=== PATIENT | male | born 1970 | race Caucasian/White ===

== ENCOUNTER 2021-03-06 07:52 | Emergency (ER) | payer OTHER ==
[~2021-03-06] VITALS: Ht 188 cm; Wt 80.7 kg
--- OUTSIDE RECORDS SUMMARY | 2021-03-06 07:56 | XMS ---
PreManage Notification: SANAM MEJIA Security Quality Specialist Events No recent Security Events currently on file CRITERIA MET - [facility] - 2 Visits in 30 Days CARE PROVIDERS KEYANNA SIDDIQUI [facility] Current PHONE: Unknown STEFFI Cote Nurse Practitioner Jose ZULETAFER PHONE: Unknown Michel has no Care Guidelines for this patient. Meli VISIT COUNT (12 MO.) [address] [place] [address] TOTAL 5 NOTE: Visits indicate total known visits. ED/UCC VISIT TRACKING (12 MO.) 03/06/2021 07:54 [facility] [place] TYPE: Emergency COMPLAINT: - POSS CONSTIPATION [facility]2021 08:[email or web address] DIAGNOSES: - Disorder of kidney and ureter, unspecified - CONSTIPATION - Constipation, unspecified 02/14/2021 14:09 [facility] [place] TYPE: Emergency DIAGNOSES: - Constipation, unspecified - CONSTIPATION 01/02/2021 09:54 [facility] [place] TYPE: Emergency DIAGNOSES: - DAILYSIS PATIENT KIDNEY PAIN - Unspecified abdominal pain - DIALYSIS PATIENT KIDNEY PAIN 03/19/2020 21:27 [facility] [place] TYPE: Emergency DIAGNOSES: - MIGRAINE - Migraine, unspecified, not intractable, without status migrainosus INPATIENT VISIT TRACKING (12 MO.) No inpatient visits to display in this time frame [email or web address]
[2021-03-06] MEDS ORDERED: NIFEDIPINE ER90 MG PO (08:26)
[2021-03-06] MEDS ORDERED: LISINOPRIL20 MG PO (08:26)
[2021-03-06] MEDS ORDERED: CONSTULOSE10 GM/15 M PO (08:26)
[2021-03-06] MEDS ORDERED: CARVEDILOL12.5 MG PO (08:26)
[2021-03-06] MEDS ORDERED: ALLOPURINOL300 MG PO (08:27)
[2021-03-06] MEDS ORDERED: MIRALAX17 GM PO (08:27)
[2021-03-06] MEDS ORDERED: ENEMA READY TO133 ML PR (09:55)
[2021-03-06] MEDS ORDERED: ANTI-GAS180 MG PO (09:55)
== END 2021-03-06 10:17 | disposition home or self-care (01) ==
LOC: ED 07:52
DX: R14.0 Abdominal distension (gaseous) (principal); Z79.899 Other long term (current) drug therapy
CPT/HCPCS: 74018; 80048; 85025; 99283-25